=== PATIENT | male | born 1955 | race Caucasian/White ===

== ENCOUNTER 2018-01-06 05:23 | Day surgery (SDC) | payer OTHER ==
[~2018-01-06] VITALS: Ht 182.9 cm; Wt 68.0 kg
--- NOTE | ~2018-01-06 | EKG ---
[address] [address] ELECTROCARDIOGRAM REPORT Name: GLORIA RINCON Room #: 150-2 [facility].#: [id number] Admission: 01/06/18 Attend Phys: Harrison Julian Discharge: Date of : 55 Report #: [id number] THIS REPORT FOR: //name// [facility] [place] [place] Test Date: 2018-01-06 Test Time: 06:37:01 Pat Name: GLORIA RINCON Department: Room: 150 2 Gender: M Floorhand: JOJO : 1955 Requested By: Kei Hussein Order Number: [id number] MD: Piyush Ortiz Measurements Intervals Welda Rate: 59 P: 85 SD: 185 QRS: 76 QRSD: 84 T: 60 QT: 429 QTc: 425 Interpretive Statements Sinus rhythm No previous ECG available for comparison Electronically Signed On 01-06-2018 8:02:15 CDT by Piyush Ortiz [email or web address] <ELECTRONICALLY SIGNED> By: Piyush Ortiz MD 01/06/18 0802 [id number] 6 Piyush Ortiz MD /XOCHILT
[~2018-01-06 05:23] MED LIST: ALPHAGAN P15 ML OPHTHALMIC; CENTRUM SILVER1 EAC2 PO; DULERA 100 MCG/13 GM INH; FISH OIL 1,001000 M2 PO; LUTEIN20 M1 PO; VENTOLIN HFA 1818 GM INH; XALATAN2.5 ML OPHTHALMIC
[2018-01-06 06:56] VITALS: BP 119/80
[2018-01-06] MEDS ORDERED: HYDROCODONE-AP1 EAC6 PO (09:41)
[2018-01-06] MEDS ORDERED: ONDANSETRON HCL4 M2 PO (09:41)
[2018-01-06 10:03] VITALS: BP 119/80
== END 2018-01-06 11:05 | disposition home or self-care (01) ==
LOC: OR 05:23 → TBA 05:23 → OR 11:04
DX: K40.90 Unilateral inguinal hernia, without obstruction or gangrene, not specified as recurrent (principal); D17.6 Benign lipomatous neoplasm of spermatic cord; K66.0 Peritoneal adhesions (postprocedural) (postinfection); J45.909 Unspecified asthma, uncomplicated; Z98.890 Other specified postprocedural states; Z90.49 Acquired absence of other specified parts of digestive tract; Z88.0 Allergy status to penicillin; Z88.2 Allergy status to sulfonamides; Z79.899 Other long term (current) drug therapy; Z79.891 Long term (current) use of opiate analgesic
CPT/HCPCS: 49000; 50010; 50101; 50249; 50386; 52265; 53310; 54022; 54118; 54169; 56525; 56526; 56641; 57092; 62110; 62900; 70005